=== PATIENT | male | born 1985 | race Asian ===

== ENCOUNTER 2024-03-01 21:43 | Inpatient (IN) | payer SELFPAY ==
[2024-03-01] MEDS ORDERED: Ketorolac Tromethamine 30 MG (1 mL) VIAL ONE (22:07)
[2024-03-01 22:35] LABS: Influenza A by NAA Not Detected (NotDetected); Influenza B by NAA Not Detected (NotDetected); SARS-CoV-2 NAA Rapid Test Not Detected (NotDetected)
[2024-03-01 22:37] LABS: #Basophils 0.03 10x3/uL (0.0-0.2); #Eosinphils 0.01 10x3/uL (0.0-0.5); #Monocytes 0.75 10x3/uL (0.0-1.1); #Neutrophils 8.39 10x3/uL (1.5-8.4); %Basophils 0.3 % (0.0-2.0); %Eosinophils 0.1 % (0.0-6.0); %Lymphocytes 12.7 % (18.0-47.0); %Monocytes 7.1 % (0.0-10.0); %Neutrophils 79.5 % (40.0-75.0); Hemoglobin 16.7 g/dL (13.5-17.5); Mean Corpuscular HGB CONC 35.5 g/dL (32.0-36.0); Mean Corpuscular Hemoglobin 29.8 pg (27.0-33.0); Mean Corpuscular Volume 83.9 fL (81.2-95.1); Mean Platelet Volume 10.6 fL (7.4-10.4); Platelet Count 209 10x3/uL (150-450); RBC Distribution Width 13.5 % (11.5-14.5); White Blood Cell (WBC) Count 10.6 10x3/uL (3.5-10.5)
[2024-03-01 22:55] LABS: ALT (SGPT) 32 U/L (8-55); AST (SGOT) 28 U/L (5-34); Albumin 4.1 g/dL (3.5-5.0); Alkaline Phosphatase 82 U/L (40-110); Anion Gap 15 mmol/L (10-20); BUN (Urea Nitrogen) 17 mg/dL (8.9-20.6); Bilirubin, Total 1.4 mg/dL (0.2-1.2); Calc. Creatinine Clearance 0 mL/min (70-130); Calcium 10.3 mg/dL (7.8-10.44); Carbon Dioxide 24 mmol/L (22-29); Chloride 102 mmol/L (98-107); Estimated GFR 73; Globulin 4.8 g/dL (2.4-3.5); Glucose 100 mg/dL (70-105); Potassium 3.7 mmol/L (3.5-5.1); Protein, Total 8.9 g/dL (6.0-8.3); Sodium 137 mmol/L (136-145)
[2024-03-02] MEDS ORDERED: Acetaminophen 500 MG TAB ONE (00:02)
[2024-03-02 01:11] LABS: HIV (1/2) Antibody/Antigen Non-Reactive (NonReactive); HIV 1/2 INDEX 0.11 S/CO (<1.00)
[2024-03-02 01:36] LABS: Clarity Clear (Clear); Leukocyte Unable to Interpret (Negative); Nitrite Unable to Interpret (Negative); Protein, Urine (Dipstick) Unable to Interpret mg/dl (Neg-Trace)
[2024-03-02 01:37] LABS: Bilirubin Unable to Interpret (Negative); Blood, Urine Unable to Interpret (Negative); Glucose, Urine (Dipstick) Unable to Interpret mg/dL (Negative); Ketone, Urine Unable to Interpret mg/dL (Negative); Urobilinogen UNABLE TO INTERPRET mg/dL (Less than 2)
[2024-03-02 01:45] LABS: Bacteria/HPF Rare-Few HPF (None Seen); CAUTI Indications for Culture Dysuria,urgency,freq; RBC/HPF 0-3 HPF (0-3); Squamous Epithelial 0-3 HPF (0-3); WBC/HPF 0-3 HPF (0-3)
[2024-03-02 01:46] LABS: Mucous/LPF 1+ LPF (<2+)
[2024-03-02 01:47] LABS: Urine Culture Reflex No No
[2024-03-02] MEDS ORDERED: cefTRIAXone (ROCEPHIN) 2 GM VIAL ONE (02:16)
[2024-03-02 02:20] LABS: MONO NEGATIVE CONTROL ZONE White (Negative) (White); MONO POSITIVE CONTROL Pink Line (Positive) (PINK/RED); Mononucleosis NEGATIVE (NEGATIVE)
[2024-03-02] MEDS ORDERED: Ondansetron ODT 4 MG TAB PO PRN (02:56)
[2024-03-02] MEDS ORDERED: Acetaminophen 650 MG Suppository PR PRN (02:56)
[2024-03-02] MEDS ORDERED: Ondansetron PF 4 MG/2 ML Vial IVP PRN (02:56)
[2024-03-02 03:20] VITALS: BMI 35.7
[2024-03-02] MEDS: Piperacillin/Tazobactam 3.375 GM in Sodium Chloride 0.9% 100 ML IVPB SCH ×3 (03:39→08:07)
[2024-03-02] MEDS: Sodium Chloride 0.9% 1,000 ML IV SCH (03:45)
[2024-03-02] MEDS: Acetaminophen 325 MG TAB PO PRN (03:45)
[2024-03-02 04:09] LABS: #Basophils 0.02 10x3/uL (0.0-0.2); #Eosinphils 0.01 10x3/uL (0.0-0.5); #Monocytes 0.79 10x3/uL (0.0-1.1); #Neutrophils 7.02 10x3/uL (1.5-8.4); %Basophils 0.2 % (0.0-2.0); %Eosinophils 0.1 % (0.0-6.0); %Lymphocytes 16.2 % (18.0-47.0); %Monocytes 8.4 % (0.0-10.0); %Neutrophils 74.8 % (40.0-75.0); Hematocrit 41.3 % (38.8-50.0); Hemoglobin 14.6 g/dL (13.5-17.5); Mean Corpuscular HGB CONC 35.4 g/dL (32.0-36.0); Mean Corpuscular Hemoglobin 29.9 pg (27.0-33.0); Mean Corpuscular Volume 84.5 fL (81.2-95.1); Mean Platelet Volume 10.7 fL (7.4-10.4); Platelet Count 175 10x3/uL (150-450); RBC Distribution Width 13.4 % (11.5-14.5); Red Blood Cell (RBC) Count 4.89 10x6/uL (4.32-5.72); White Blood Cell (WBC) Count 9.4 10x3/uL (3.5-10.5)
[2024-03-02 04:45] LABS: Anion Gap 13 mmol/L (10-20); BUN (Urea Nitrogen) 16 mg/dL (8.9-20.6); Calc. Creatinine Clearance 145 mL/min (70-130); Calcium 9.1 mg/dL (7.8-10.44); Carbon Dioxide 23 mmol/L (22-29); Chloride 105 mmol/L (98-107); Estimated GFR 91; Glucose 90 mg/dL (70-105); Potassium 3.6 mmol/L (3.5-5.1); Sodium 137 mmol/L (136-145)
[2024-03-02] MEDS: Potassium Bicarbonate/Cit Ac 20 MEQ TAB PO SCH (09:21)
[2024-03-02] MEDS: Doxycycline 100 MG CAP PO SCH (09:21)
[2024-03-02] MEDS ORDERED: Iopamidol 300 61% 100 ML VIAL FS ONE ×2 (10:17→10:25)
[2024-03-02 15:33] LABS: % Infected Cells W/Parasite No parasites seen
[2024-03-02] MEDS: Benzocaine/Menthol 1 LOZ LOZ PO PRN (17:07)
[2024-03-02] MEDS: Phenol 177 ML BOT PO PRN (17:07)
[2024-03-02] MEDS: VANCOMYCIN 2 GRAM/400 ML BAG 2 GM in Premix 1 BAG IVPB SCH (18:41)
[2024-03-02] MEDS ORDERED: Vancomycin 1 GM in Premix 1 BAG IVPB SCH (21:00)
[2024-03-02] MEDS: Ketorolac Tromethamine 30 MG (1 mL) VIAL IVP SCH (23:07)
[2024-03-03 04:29] LABS: #Basophils 0.02 10x3/uL (0.0-0.2); #Eosinphils 0.03 10x3/uL (0.0-0.5); #Monocytes 0.84 10x3/uL (0.0-1.1); #Neutrophils 4.92 10x3/uL (1.5-8.4); %Basophils 0.3 % (0.0-2.0); %Eosinophils 0.4 % (0.0-6.0); %Lymphocytes 22.1 % (18.0-47.0); %Monocytes 11.2 % (0.0-10.0); %Neutrophils 65.6 % (40.0-75.0); Hematocrit 36.3 % (38.8-50.0); Mean Corpuscular HGB CONC 35.8 g/dL (32.0-36.0); Mean Corpuscular Volume 83.6 fL (81.2-95.1); Mean Platelet Volume 10.6 fL (7.4-10.4); Platelet Count 168 10x3/uL (150-450); RBC Distribution Width 13.4 % (11.5-14.5); Red Blood Cell (RBC) Count 4.34 10x6/uL (4.32-5.72); White Blood Cell (WBC) Count 7.5 10x3/uL (3.5-10.5)
[2024-03-03 04:31] LABS: Lactic Acid 0.8 mmol/L (0.5-2.2)
[2024-03-03 04:36] LABS: ALT (SGPT) 22 U/L (8-55); AST (SGOT) 17 U/L (5-34); Albumin 3.1 g/dL (3.5-5.0); Alkaline Phosphatase 58 U/L (40-110); Anion Gap 12 mmol/L (10-20); BUN (Urea Nitrogen) 7 mg/dL (8.9-20.6); Bilirubin, Total 0.8 mg/dL (0.2-1.2); Calc. Creatinine Clearance 192 mL/min (70-130); Calcium 8.9 mg/dL (7.8-10.44); Carbon Dioxide 22 mmol/L (22-29); Chloride 107 mmol/L (98-107); Estimated GFR 116; Globulin 3.6 g/dL (2.4-3.5); Glucose 87 mg/dL (70-105); Potassium 3.5 mmol/L (3.5-5.1); Protein, Total 6.7 g/dL (6.0-8.3); Sodium 137 mmol/L (136-145)
[2024-03-03 04:37] LABS: Vancomycin, Random 7.5 ug/mL (See Comment)
[2024-03-03] MEDS: Vancomycin 1.5 GRAM/300 ML BAG 1.5 GM in Premix 1 BAG IVPB SCH (04:52)
[2024-03-03] MEDS: Potassium Bicarbonate/Cit Ac 20 MEQ TAB PO SCH (08:23)
[2024-03-03] MEDS ORDERED: hydrALAZINE 25 MG TAB PO PRN (12:46)
[2024-03-03] MEDS ORDERED: Vancomycin 1.5 GRAM/300 ML BAG 1.5 GM in Premix 1 BAG IVPB SCH (13:00)
[2024-03-03] MEDS: Valsartan 80 MG TAB PO SCH (14:18)
[2024-03-03] MEDS: Amoxicillin/Potassium Clav 875 MG TAB PO SCH (20:42)
[2024-03-04] MEDS: Valsartan 80 MG TAB PO SCH (09:23)
[2024-03-04 13:50] VITALS: BP 130/67; TEMP 98.6
== END 2024-03-04 14:45 | disposition home or self-care (01) | DRG 872 ==
LOC: CSHERS 21:43 → CSHTELE 03-02 02:07 → OBSVTOIN 03-02 08:05 → CSHTELE 03-03 15:33
PROVIDERS: ADMIT Student in an Organized Health Care Education/Training Program; ATTEND Hospitalist
DX: A41.9 Sepsis, unspecified organism (principal); J03.90 Acute tonsillitis, unspecified; I10 Essential (primary) hypertension; R65.20 Severe sepsis without septic shock; E87.6 Hypokalemia; E66.9 Obesity, unspecified; Z68.35 Body mass index [BMI] 35.0-35.9, adult; Z79.899 Other long term (current) drug therapy
CPT/HCPCS: 36415; 70450; 70491; 71046; 74177; 76705; 80048; 80053; 80202; 81001; 83605; 83735; 85025; 85060; 86140; 86308; 87040; 87081; 87086; 87207; 87389; 87430; 87633; G0378; J0696; J1885; J2543; J3370; J3490; J7050; Q9967